=== PATIENT | female | born 1965 | race Caucasian/White ===

== ENCOUNTER 2022-12-14 15:00 | Emergency (ER) | payer MEDICAID ==
[~2022-12-14] VITALS: Ht 157.5 cm; Wt 53.2 kg
[2022-12-14 16:04] LABS: BASOPHILS % (AUTO) 0.3 % (0-1); EOSINOPHILS # (AUTO) 0.1 X10'3 (0-0.9); EOSINOPHILS % (AUTO) 1.3 % (0-6); HEMATOCRIT 36.7 % (35.0-45.0); HEMOGLOBIN 12.2 g/dl (12.0-16.0); LYMPHOCYTES # (AUTO) 1.4 X10'3 (1.1-4.8); LYMPHOCYTES % (AUTO) 16.8 % (21-51); MEAN CORPUSCULAR HEMOGLOBIN 30.1 PG (27.0-31.0); MEAN CORPUSCULAR HGB CONC 33.3 g/dL (33.0-36.5); MEAN CORPUSCULAR VOLUME 90.6 FL (78-98); MEAN PLATELET VOLUME 8.2 FL (7.4-10.4); MONOCYTES # (AUTO) 0.9 X10'3 (0-0.9); MONOCYTES % (AUTO) 11.4 % (2-12); NEUTROPHILS # (AUTO) 5.8 X10'3 (1.8-7.7); NEUTROPHILS % (AUTO) 70.2 % (42-75); PLATELET COUNT 229 X10'3 (140-440); RED BLOOD COUNT 4.05 X10'6 (4.20-5.60); RED CELL DISTRIBUTION WIDTH 13.9 % (11.5-14.5); WHITE BLOOD COUNT 8.2 X10'3 (4.5-11.0)
[2022-12-14 16:15] LABS: ALANINE AMINOTRANSFERASE 21 U/L (12-78); ALBUMIN 3.5 G/DL (3.4-5.0); ALKALINE PHOSPHATASE 67 IU/L (46-116); ANION GAP 6 (8-16); ASPARTATE AMINO TRANSFERASE 16 U/L (10-37); BILIRUBIN,TOTAL 0.3 MG/DL (0.1-1.0); BLOOD UREA NITROGEN 17 MG/DL (7-18); BUN/CREATININE RATIO 23.6 (6.6-38.0); CALCIUM 9.2 MG/DL (8.5-10.1); CHLORIDE 104 MMOL/L (99-107); CREATININE 0.72 MG/DL (0.40-0.90); GLUCOSE 113 MG/DL (70-104); POTASSIUM 3.8 MMOL/L (3.5-5.1); SODIUM 138 MMOL/L (135-145); TOTAL CARBON DIOXIDE 28.1 MMOL/L (24-32); TOTAL PROTEIN 6.9 G/DL (6.4-8.2); eGFR 83 ML/MIN
[2022-12-14 16:24] LABS: ETHANOL < 0.010 GM/DL (0.0-0.010)
[2022-12-14 20:38] LABS: URINE HCG NEGATIVE (NEG)
[2022-12-14 20:48] LABS: CLARITY,URINE CLEAR (Clear); COLOR,URINE YELLOW (Yellow); GLUCOSE, URINE NEGATIVE (Neg); KETONES,URINE NEGATIVE (Neg); LEUKOCYTE ESTERASE ,URINE NEGATIVE (Neg); NITRITES, URINE NEGATIVE (Neg); OCCULT BLOOD,URINE TRACE-INTACT (Neg); PH,URINE 6.5 (4.8-8.0); PROTEIN,URINE NEGATIVE (Neg); UROBILINOGEN,URINE 0.2 E.U/dL (0.2-1.0)
[2022-12-14 20:50] LABS: UA COLLECTION TYPE CLN CATCH MIDSTREAM
[2022-12-14 20:51] LABS: RBC,URINE 0-2 /HPF (0-2); WBC,URINE 0-4 /HPF (0-4)
[2022-12-14 20:52] LABS: BACTERIA,URINE 1+ /HPF (Neg); MUCUS STRANDS FEW /LPF (Neg); SQUAMOUS EPITHELIAL CELL,UR MODERATE /LPF (FEW); URINE AMPHETAMINE SCREEN NEGATIVE (Neg); URINE BARBITUATE SCREEN NEGATIVE (Neg); URINE BENZODIAZEPINES SCREEN NEGATIVE (Neg); URINE CANNABINOID SCREEN NEGATIVE (Neg); URINE COCAINE SCREEN NEGATIVE (Neg); URINE METHADONE SCREEN NEGATIVE (Neg); URINE OPIATE SCREEN NEGATIVE (Neg); URINE PHENCYCLIDINE SCREEN NEGATIVE (Neg)
--- NOTE | 2022-12-15 10:23 | NUR ---
Pt moved from ER main bed 16 to ER overflow bed 20 ambulated onto unit accompanied by jeanna.
--- NOTE | 2022-12-15 10:41 | NUR ---
jeanna sent pt packet to [facility]
--- NOTE | 2022-12-15 10:56 | NUR ---
Shelli from [facility] provided eval notes from 12/14/22. Pt was placed on a 5150 by the [facility] for GD. Pt was recently released from [facility] after a 3 month stay there, the date that she was released is unknown. Pt reports "weeks" ago. Pt thought the date today was 12/14/22. Her elderly father reported that he does not know how to take care of her. Pt is a poor historian. She does not know if she was on any meds, does not remember the names of any she may have been taking. No medications were found in the external med history. Pt wanders the unit and appears lost. She needs supervision and redirection. Pt reports that she feels scared. Reassured pt that she is safe here. Per Shelli, the [facility] is currently looking for placement for this patient.
[2022-12-15] MEDS ORDERED: LORazepam 1 MG tablet PO ONE (11:35)
--- NOTE | 2022-12-15 11:41 | NUR ---
Pt was given Ativan 1 mg at 1137. Pt took the med though appeared somewhat paranoid about doing so. Pt got up and immediately went to the bathroom.
--- NOTE | 2022-12-15 11:47 | NUR ---
Called [facility] to see if they could provide us with medication list pt discharged on. They report that this must be done through their medical records who won't be back until Saturday.
--- NOTE | 2022-12-15 12:33 | NUR ---
Per break relief RN, pt had BM on her pants, some was noted on the floor as well. Pt is in the bathroom cleaning up. She was provided with wipes and clean pants.
[2022-12-15] MEDS ORDERED: NO HOME MEDS (12:43)
--- NOTE | 2022-12-15 13:21 | NUR ---
Pt is sitting quietly in a sanket-chair by the nurse's station.
--- NOTE | 2022-12-15 13:23 | NUR ---
Pt returned to her room and is eating her lunch.
--- NOTE | 2022-12-15 15:23 | NUR ---
Pt is [facility] near the nurse's station, a warm blanket was provided.
[2022-12-15] MEDS ORDERED: CLOZ50TA PO (16:15)
[2022-12-15] MEDS ORDERED: OMEG-5 PO (16:15)
[2022-12-15] MEDS ORDERED: OLAN-1 PO (16:15)
[2022-12-15] MEDS ORDERED: MULT-673 PO (16:15)
[2022-12-15] MEDS ORDERED: MEMA10TA PO (16:15)
[2022-12-15] MEDS ORDERED: CLOZ100T21 PO (16:15)
[2022-12-15] MEDS ORDERED: CIPR2.5D21 EACHEYE (16:15)
[2022-12-15] MEDS ORDERED: SENN1TAB33 PO (16:15)
--- NOTE | 2022-12-15 16:24 | NUR ---
Discovered medical papers in pt's belongings including her discharge med list from [facility]. Med rec completed, allergies updated. Pt was discharged from [facility] on 12/14/22.
[2022-12-15] MEDS ORDERED: LORazepam 1 MG tablet PO PRN (16:25)
--- NOTE | 2022-12-15 16:51 | NUR ---
Pt has a diagnosis of Schizophrenia with depression and anxiety, as well as episodes of catatonia. Addendum: 12/15/22 at 1652 by SUDEEP Pt also has a diagnosis of panic disorder.
[2022-12-15] MEDS: ciprofloxacin 0.3% 2.5ml ophthalmic solution EACHEYE SCH ×2 (17:00→21:00)
--- NOTE | 2022-12-15 17:02 | NUR ---
Pt reports that her dad Crescencio's phone # is [phone].
--- NOTE | 2022-12-15 17:45 | NUR ---
Pt moved from ER overflow bed 20 to ER main bed 9. Addendum: 12/15/22 at 1746 by SUDEEP Ambulated off the unit accompanied by pet caretaker.
--- NOTE | 2022-12-15 18:33 | NUR ---
Pharmacy called to report that pt is not enrolled in the [facility] program so they cannot dispense the med. They wished to speak with Dr Rivas. Dr Rivas does not know how to register the patient in the program. Endorsed to noc nurse Bateman RN to pass on in report that [facility] providers do know how to do this and perhaps day shift can consult with them so pt can continue on her Clozaril that she was on at [facility].
--- NOTE | 2022-12-15 18:45 | NUR ---
Pt ate 50% of anastasiya meal and drank 360ml of fluids. Amb to and from bathroom without difficulty. Pt requires re education on hold and situation. Pt is pleasant and cooperative with care
[2022-12-15] MEDS: OLANZapine 5mg rapidly disint. tablet PO SCH (20:00)
[2022-12-15] MEDS: memantine 5mg tablet PO SCH (20:00)
[2022-12-15] MEDS ORDERED: non-formulary drug (Clozapine 1 TAB) PO SCH (21:00)
[2022-12-15] MEDS ORDERED: sennosides/docusate sodium tablet PO SCH (21:00)
--- NOTE | 2022-12-16 06:29 | NUR ---
PT IS CURRENTLY IN BED RESTING WITH EYES CLOSED. RESPIRATIONS APPEAR EVEN AND UNLABORED. NO SIGNS OR SYMPTOMS OF DISTRESS NOTED. WILL CONTINUE TO MONITOR.
[2022-12-16] MEDS: OLANZapine 5mg rapidly disint. tablet PO SCH (07:38)
[2022-12-16] MEDS: ciprofloxacin 0.3% 2.5ml ophthalmic solution EACHEYE SCH (07:38)
[2022-12-16] MEDS: memantine 5mg tablet PO SCH (07:39)
[2022-12-16] MEDS ORDERED: non-formulary drug (Clozapine 1 TAB) PO SCH (08:00)
[2022-12-16] MEDS ORDERED: multivitamins, therapeutics tablet PO SCH (08:00)
[2022-12-16] MEDS ORDERED: OMEGA-3/DHA/EPA/FISH OIL 1 EACH CAPSULE.DR PO SCH (08:00)
--- NOTE | 2022-12-16 08:27 | NUR ---
I have reviewed and agree with all interventions, assessments performed and documented by ROBBY Palumbo.
[2022-12-16 09:00] VITALS: BP 127/80
--- NOTE | 2022-12-16 10:35 | NUR ---
TRANSPORTATION SERVICES ARRIVED AT 1025 TO TRANSPORT PT TO [facility]. [facility] CONTACTED AT 1030 TO GIVE NURSE TO NURSE REPORT. NURSE STATED THERE WAS AN EMERGENCY AND REQUESTED TO BE CALLED BACK.
--- NOTE | 2022-12-16 11:01 | NUR ---
NURSE TO NURSE REPORT GIVEN TO PAVAN AT [facility] AT 1100
--- NOTE | 2022-12-16 11:15 | NUR ---
RN PAVAN NOTIFIED OF PT'S MEDICATIONS DURING NURSE TO NURSE REPORT, GIVEN AT 1100, INCLUDING ANTIBIOTIC EYE DROPS FOR CONJUNCTIVITIS.
== END 2022-12-16 11:03 | disposition home or self-care (01) ==
LOC: ER 15:01
DX: F41.9 Anxiety disorder, unspecified (principal); Z20.822 Contact with and (suspected) exposure to COVID-19; F32.A Depression, unspecified; F79 Unspecified intellectual disabilities
CPT/HCPCS: 36415; 80053; 80305; 80320; 81001; 81025; 84443; 85025; 87635; 87811; 99285; C9803

== ENCOUNTER 2024-03-13 09:24 | Outpatient (CLI) | payer MEDICAID ==
[~2024-03-13 09:24] MED LIST: CIPR2.5D21 EACHEYE; CLOZ100T21 PO; CLOZ50TA9 PO; MEMA10TA PO; MULT-673 PO; OLAN-1 PO; OMEG-5 PO; SENN1TAB33 PO
== END 2024-03-13 23:59 | disposition home or self-care (01) ==
LOC: RAD 09:24
PROVIDERS: ATTEND Nurse Practitioner Family
DX: R10.9 Unspecified abdominal pain (principal)
CPT/HCPCS: 76700

== ENCOUNTER 2024-10-07 15:08 | Outpatient (CLI) | payer MEDICAID | END 2024-10-07 23:59 | disposition home or self-care (01) | LOC: RAD 15:08 | PROVIDERS: ATTEND Nurse Practitioner Psychiatric/Mental Health | DX: F20.2 Catatonic schizophrenia (principal); Z79.899 Other long term (current) drug therapy | CPT/HCPCS: 93005 ==